=== PATIENT | female | born 1975 | race Caucasian/White ===

== ENCOUNTER 2020-01-01 07:49 | Emergency (ER) | payer OTHER ==
[~2020-01-01] VITALS: Ht 165.1 cm; Wt 63.5 kg
--- NOTE | 2020-01-01 07:50 | NUR ---
Patient to ER bed 7 to gown for evaluation. Side rails up.
--- NOTE | 2020-01-01 07:55 | NUR ---
ER Dr. Goodwin at bedside examining patient.
[2020-01-01 07:57] VITALS: BP_SYST 133
--- NOTE | 2020-01-01 07:57 | NUR ---
Patient presesented to ER C/O abdominal pain. Patient BIB BLS, A&Ox4, afebrile, skin pink and warm, nausea, denies V/D, pain 10/10. Patient states she has sudden onset abdominal pain this morning. Patient states she had an stomach last night, denies other symptoms.
[2020-01-01] MEDS ORDERED: KETOROLAC TROMETHAMINE 60 MG/2 ML VIAL IM ONE (08:00)
[2020-01-01 08:31] LABS: BASOPHILS % (AUTO) 0.6 % (0.0-2.0); EOSINOPHILS # (AUTO) 0.1 K/uL (0.0-0.4); EOSINOPHILS % (AUTO) 1.3 % (0.0-4.0); HEMATOCRIT 42.6 % (36-48); HEMOGLOBIN 14.6 g/dL (12.0-16.0); LYMPHOCYTES % (AUTO) 12.4 % (20.5-51.5); MEAN CORPUSCULAR HEMOGLOBIN 33 pg (27-31); MEAN CORPUSCULAR HGB CONC 34 % (32-36); MEAN CORPUSCULAR VOLUME 96 fL (79.0-98.0); MONOCYTES # (AUTO) 0.4 K/uL (0.0-1.0); MONOCYTES % (AUTO) 4.7 % (1.7-9.3); NEUTROPHILS # (AUTO) 6.3 K/uL (1.8-7.7); PLATELET COUNT (AUTO) 288 K/uL (130-430); RED BLOOD CELL COUNT(AUTO) 4.45 MIL/uL (4.2-6.2); WHITE BLOOD COUNT (AUTO) 7.8 K/uL (4.8-10.8)
[2020-01-01 08:58] LABS: ALBUMIN 3.9 g/dL (3.4-4.8); CALCIUM 9.2 mg/dL (8.4-11.0); CREATININE 0.65 mg/dL (0.55-1.30); POTASSIUM 4.2 mmol/L (3.5-5.1); TOTAL BILIRUBIN 0.8 mg/dL (0.0-1.0)
[2020-01-01 09:08] LABS: PROTHROMBIN TIME 10.1 SECS (9.5-12.5)
--- NOTE | 2020-01-01 10:31 | NUR ---
of patient request Dr. Goodwin for questions. made Dr. Goodwin aware.
--- NOTE | 2020-01-01 10:35 | NUR ---
Patient in Radiology for Ultrasound, Dr. pitts at bedside discussing treatment with .
[2020-01-01] MEDS ORDERED: ONDANSETRON 4 MG ODT TAB PO ONE (10:45)
[2020-01-01] MEDS ORDERED: MORPHINE SULFATE 10 MG/ML VIAL IM ONE (10:45)
--- NOTE | 2020-01-01 11:30 | NUR ---
ER Dr. GARCES AT DISCUSSING DISCHARGE INSTRUCTIONS WITH PATIENT.
[2020-01-01 11:37] VITALS: BP_SYST 106
--- NOTE | 2020-01-01 11:40 | NUR ---
Patient given written and verbal discharge instructions and verbalizes understanding. ER MD discussed with patient the results and treatment provided. Patient in stable condition. ID arm band removed. Rx of NORCO & MOTRIN given. Patient educated on pain management and to follow up with PMD. Pain Scale . Opportunity for questions provided and answered. Medication side effect fact sheet provided.
== END 2020-01-01 11:37 | disposition home or self-care (01) ==
LOC: SED 07:49
DX: N83.201 Unspecified ovarian cyst, right side (principal)
CPT/HCPCS: 36415; 74176; 76830; 76857; 80053; 81002; 81025; 82150; 83605; 83690; 84703; 85025; 85610; 85730; 96372; 99284; J1885; J2270; Q0162